=== PATIENT | male | born 1945 | race Caucasian/White ===

== ENCOUNTER 2016-07-01 12:45 | Outpatient (RCR) | payer OTHER | END 2016-09-04 | disposition home or self-care (01) | LOC: WSC | DX: R53.81 Other malaise (principal) ==

== ENCOUNTER 2020-08-13 13:10 | Emergency (ER) | payer OTHER ==
[~2020-08-13] VITALS: Ht 188 cm; Wt 124.5 kg
[2020-08-13] MEDS ORDERED: LIPITOR 80MG80 MG PO (14:40)
[2020-08-13] MEDS ORDERED: GLUCOPHAGE500 MG/TAB PO (14:40)
[2020-08-13] MEDS ORDERED: PEPCID 20MG TAB20 MG PO (14:41)
[2020-08-13] MEDS ORDERED: PRINZIDE 12.5 M1 TAB PO (14:41)
[2020-08-13] MEDS ORDERED: HYDROPHILIC GRX1 OIN (14:42)
[2020-08-13] MEDS ORDERED: COREG12.5 MG PO (14:42)
[2020-08-13] MEDS ORDERED: ASPIRIN 81M81 MG/TA2 PO (14:43)
[2020-08-13] MEDS ORDERED: ZYLOPRIM 300MG300 MG PO (14:44)
[2020-08-13] MEDS ORDERED: FLOMAX 0.40.4 MG/CAP PO (14:44)
[2020-08-13] MEDS ORDERED: VITAMIN D3400 I1 PO (14:44)
[2020-08-13 15:35] LABS: BASO # 0.1 (0.0-0.2); BASO % 0.9 % (0.0-2.0); EOS # 0.4 (0.0-0.7); GRAN # 3.5 (1.4-6.5); HEMATOCRIT 45.6 % (42.0-52.0); LYMPH # 1.3 (1.2-3.4); MEAN CELL VOLUME 93 fl (80.0-100.0); MEAN CORPUSCULAR HEMOGLOBIN 31 pg (27.0-31.0); MEAN CORPUSCULAR HGB CONC 33 g/dl (33.0-37.0); MEAN PLATELET VOLUME 10.2 fl (7.4-10.4); MONO # 0.4 (0.1-0.6); MONO % 6.6 % (1.7-9.3); PLATELET COUNT 163 K/mm3 (130-400); RED BLOOD COUNT 4.88 M/mm3 (4.20-5.60)
[2020-08-13 15:41] LABS: ALBUMIN 4.2 gm/dL (3.5-5.0); BILIRUBIN,TOTAL 0.7 mg/dL (0.0-1.0); CALCIUM 9.4 mg/dL (8.4-10.2); CREATININE, serum 1.24 (0.66-1.25); POTASSIUM 4.8 mmol/L (3.4-5.0); TOTAL PROTEIN 7.5 gm/dL (6.4-8.2)
[2020-08-13 15:53] LABS: TROPONIN-I 0.018 ng/mL (0.000-0.035)
[2020-08-13] MEDS ORDERED: APRESOLINE 25MG25 MG PO (16:15)
[2020-08-13 16:28] VITALS: BP 178/83; PULSE 67; TEMP 97.9
== END 2020-08-13 16:28 | disposition home or self-care (01) ==
LOC: COL.ER 13:10
PROVIDERS: Emergency Medicine
DX: I12.9 Hypertensive chronic kidney disease with stage 1 through stage 4 chronic kidney disease, or unspecified chronic kidney disease (principal); R94.4 Abnormal results of kidney function studies; I16.0 Hypertensive urgency; N18.9 Chronic kidney disease, unspecified